=== PATIENT | female | born 1965 | race Caucasian/White ===

== ENCOUNTER 2016-05-04 13:46 | Emergency (ER) | payer OTHER ==
--- NOTE | 2016-05-04 14:34 | UCPHY ---
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 The dairy science teacher was concerned that she might have shingles and referred her to our clinic for further evaluation. Patient describes rash bilateral upper chest and neck that is oriented around hair follicles with small papules 10 be itchy occasional trace amount of purulent drainage from some of them. She also reports having had a left-sided hemicranial headache over the past 3 or 4 days intermittently that has since resolved. Her rash symptoms are primarily on the right side of her chest and neck. ROS: No fevers or chills. No other constitutional symptoms. HEENT: No nasal congestion. Neuro: No confusion. No numbness tingling or focal weakness. No visual changes. 10 point ROS is otherwise negative Past Medical/Surgical History: Occasional similar headaches. Smoking Status: Never smoked Physical Exam: Physical exam: Vital signs are normal General: Patient is in no acute distress. HEENT: Is no external evidence of trauma on exam. Nose atraumatic. Oropharynx: No dental trauma or malocclusion. No intraoral lacerations. Eyes: Pupils are equal and reactive to light. Extraocular motions are intact. Neck: Supple Lungs: No respiratory distress Cardiac: Brisk capillary refill intact throughout Skin: Patient has small erythematous papules or in her follicles to the right upper chest in lateral neck more than left. She has a pressure. No petechia or purpura. No vesicular lesions. No dermatomal distribution to her rash. There is no rash or vesicular lesions on her head. Neuro: GCS of 15. Cranial nerves II through XII intact. 3 out of 3 five- minute memory is intact. Cerebellar exam is normal as judged by symmetric rapid hand movements bilaterally. No pronator drift. No sensory or motor deficits are appreciated. Differential diagnosis: Tension headache or migraine headache-resolved, folliculitis, dermatitis Constitutional: Initial Vital Signs Temperature (C) 36.6 C 05/04/16 14:10 Heart Rate 93 05/04/16 14:10 Respiratory Rate 16 05/04/16 14:10 Blood Pressure 135/67 H 05/04/16 14:10 O2 Sat (%) 95 05/04/16 14:10 O2 Delivery Mode Room Air Allergies/Adverse Reactions: diphenhydramine HCl [From Benadryl] Allergy (Intermediate, Verified 05/04/16 14: 16) NAUSEA Sulfa (Sulfonamide Antibiotics) Allergy (Intermediate, Verified 05/04/16 14:16) Rash mesalamine [From Asacol] Allergy (Verified 05/04/16 14:16) Home Medications: Medication Instructions Recorded Methimazole [Tapazole 5MG (RX)] 2.5 mg PO 12/15/11 Cephalexin [Keflex (*)] 500 mg PO TID #21 cap 05/04/16 MDM/Departure - [facility] ED Course/Re-evaluation: I did not feel this patient has shingles given lack of dermatomal distribution and other inconsistencies. I counseled her regarding this. We will treat her for folliculitis to cover staph. - Depart Disposition: Home, Routine, Self-Care Clinical Impression: Folliculitis Condition: Good Instructions: Folliculitis (ED) Additional Instructions: Diagnosis: Folliculitis 2. Headache Plan: Keflex antibiotic Tylenol for headache if needed Follow up with Dr. Thornton-log cutter for any ongoing symptoms despite treatment plan Return for any significant worsening despite the treatment plan Prescriptions: Cephalexin [Keflex (*)] 500 mg PO TID #21 cap Referrals: Johana Clark MD [Primary Care Provider] - As per Instructions - PQRS PQRS Measurement: NA
[2016-05-04 14:37] VITALS: BP 135/67; PULSE 93; RESP 16; TEMP 97.9; O2SAT 95
== END 2016-05-04 15:00 | disposition home or self-care (01) ==
LOC: CED 13:46
DX: L73.9 Follicular disorder, unspecified (principal); R51 Headache
CPT/HCPCS: G0463-PO

== ENCOUNTER → 2016-06-04 | Outpatient (CLI) | payer OTHER | LOC: BRMIMAGING 08:32 | PROVIDERS: ATTEND Internal Medicine Endocrinology, Diabetes & Metabolism | DX: Z13.820 Encounter for screening for osteoporosis (principal); M85.80 Other specified disorders of bone density and structure, unspecified site; E21.3 Hyperparathyroidism, unspecified; E03.9 Hypothyroidism, unspecified; M45.9 Ankylosing spondylitis of unspecified sites in spine ==

== ENCOUNTER → 2016-06-11 | Outpatient (CLI) | payer OTHER | LOC: BRMIMAGING 11:08 | DX: Z12.31 Encounter for screening mammogram for malignant neoplasm of breast (principal); Z80.3 Family history of malignant neoplasm of breast | CPT/HCPCS: G0202 ==

== ENCOUNTER → 2017-10-07 | Outpatient (CLI) | payer OTHER | LOC: CIMAGING 08:03 | PROVIDERS: ATTEND Urology | DX: N20.0 Calculus of kidney (principal); M45.9 Ankylosing spondylitis of unspecified sites in spine | CPT/HCPCS: 74176-PO ==

== ENCOUNTER → 2017-12-14 | Outpatient (CLI) | payer OTHER | LOC: CIMAGING 16:04 | PROVIDERS: ATTEND Family Medicine | DX: R06.02 Shortness of breath (principal); M45.4 Ankylosing spondylitis of thoracic region; M45.6 Ankylosing spondylitis lumbar region | CPT/HCPCS: 71046-PO ==

== ENCOUNTER 2018-01-13 12:49 | Observation (INO) | payer OTHER ==
[2018-01-13] MEDS ORDERED: LIDOCAINE 1% 2 ML INJ ID PRN (14:50)
[2018-01-13] MEDS ORDERED: LR 1,000 ML IV ONE (14:50)
[2018-01-13] MEDS: fentaNYL 100 MCG/2 ML INJ IVP PRN ×3 (15:10→16:03)
--- NOTE | 2018-01-13 15:35 | PDANEPAE ---
ANE Past Medical History - Cardiovascular History Hx Hypertension: No Hx Arrhythmias: No Hx Chest Pain: No Hx Coronary Artery / Peripheral Vascular Disease: No Hx CHF / Valvular Disease: No Hx Palpitations: No - Pulmonary History Hx COPD: No Hx Asthma/Reactive Airway Disease: Yes Hx Recent Upper Respiratory Infection: No Hx Oxygen in Use at Home: No Hx Sleep Apnea: No - Endocrine History Hx Diabetes: No Hypothyroid: No Hyperthyroid: Yes Obesity: severe ANE Review of Systems Review of Systems: ANE Patient History - Allergies Allergies/Adverse Reactions: diphenhydramine HCl [From Benadryl] Allergy (Intermediate, Verified 01/13/18 14: 49) Hives Sulfa (Sulfonamide Antibiotics) Allergy (Intermediate, Verified 01/13/18 14:49) Hives mesalamine [From Asacol] Allergy (Verified 01/13/18 14:49) Vomiting - Home Medications Home Medications: Methimazole [Tapazole 5MG (RX)] 2.5 mg PO 12/15/11 [Last Taken Unknown] Proair Hfa 01/13/18 [Last Taken 3 Weeks Ago ~12/23/17] - NPO status NPO Since - Liquids (Date): 01/13/18 NPO Since - Liquids (Time): 12:00 NPO Since - Solids (Date): 01/13/18 NPO Since - Solids (Time): 10:00 - Smoking Hx Smoking Status: Never smoked ANE Labs/Vital Signs - Vital Signs Blood Pressure: 139/76 Heart Rate: 100 Respiratory Rate: 20 O2 Sat (%): 96 Height: 158.75 cm Weight: 108.862 kg ANE Physical Exam - Airway Neck exam: decreased ROM Mallampati Score: Class 1 Mouth exam: normal dental/mouth exam - Pulmonary Pulmonary: no respiratory distress - Cardiovascular Cardiovascular: regular rate and rhythym - ASA Status ASA Status: III ANE Anesthesia Plan Anesthesia Plan: general endotracheal anesthesia
--- NOTE | 2018-01-13 15:47 | PDHPUP ---
History & Physical Update H&P update statement: This history and physical update is based on an assessment of the patient which was completed after admission or registration (within 24 hours), but prior to the surgery/procedure. H&P update: H&P reviewed & patient examined, changes noted (she has left flank pain today and desires tx of her stone today)
[2018-01-13] MEDS ORDERED: ceFAZolin 2 GM/DEXTROSE 100 ML IV ONE (15:48)
[2018-01-13] MEDS ORDERED: OPIUM/BELLADONNA ALKALO SUPP PR ONE (16:00)
[2018-01-13] MEDS ORDERED: LR 500 ML IV PRN (17:00)
[2018-01-13] MEDS ORDERED: fentaNYL 100 MCG/2 ML INJ IVP PRN (17:00)
[2018-01-13] MEDS ORDERED: NALOXONE HCL 0.4 MG/ML INJ IVP PRN (17:00)
[2018-01-13] MEDS ORDERED: ONDANSETRON 4 MG/2 ML VIAL IVP PRN ×2 (17:00→20:24)
--- NOTE | 2018-01-13 18:56 | POSTOPPROG ---
Post Op Note Date of Operation: 01/13/18 Surgeon: iCci Aguila Anesthesia: GET(General Endotracheal) Pre-op Diagnosis: left renal stone, pain Post-op Diagnosis: small bladder mass, same Indication: left renal stones and pain Procedure: cysto, LURS, laser, stent, RGP, TURBT Findings: small bladder mass <0.5mm near right UO. Urethral polyps,Stone left kidney. Inf/Abcess present in the surg proc area at time of surgery?: No EBL: Minimal Complications: none, pt tolerated all well Drains: Other (mcmanus) Specimen(s): Stone, bladder tumor
[2018-01-13] MEDS ORDERED: OXYCODONE/APAP 5/325 TAB PO PRN (20:24)
[2018-01-13] MEDS ORDERED: NS 1,000 ML IV SCH (20:30)
[2018-01-13] MEDS ORDERED: ACETAMINOPHEN 500 MG TAB ONE (22:18)
[2018-01-13] MEDS: ACETAMINOPHEN 500 MG TAB PO PRN (22:20)
[2018-01-13] MEDS: CEPHALEXIN 500 MG CAP PO SCH (23:54)
[2018-01-14] MEDS: SENNOSIDES/DOCUSATE SODIUM TAB PO SCH ×2 (00:10→12:39)
[2018-01-14] MEDS: CEPHALEXIN 500 MG CAP PO SCH (06:32)
--- NOTE | 2018-01-14 07:32 | GOP ---
DATE OF OPERATION: 01/13/2018 SURGEON: Cici Aguila MD ANESTHESIA: General. PREOPERATIVE DIAGNOSIS: Left renal stone and pain. POSTOPERATIVE DIAGNOSIS: Small bladder mass, left renal stone and pain, frondular urethral polyps. PROCEDURE PERFORMED: Cystoscopy, left ureteroscopy, laser lithotripsy, basket extraction of stone, stent, retrograde pyelogram, intraoperative fluoroscopy, and transverse resection of bladder tumor. Transurethral resection of bladder tumor as well as removal of urethral polyp. FINDINGS: A small bladder tumor less than 0.5 mm midline to the right ureteral orifice. There were frondular urethral polyps that bled easily. There were stones in the left kidney. SPECIMENS: Bladder tumor as well as left renal stones. ESTIMATED BLOOD LOSS: Minimal. INDICATIONS: Left renal stone and pain. DESCRIPTION OF PROCEDURE: The patient was taken back to the cystoscopy suite, placed on the cystoscopy table in supine position. General anesthesia induced without complication. Time-out performed and core measures satisfied including placement of a Meenu Hugger, SCDs and administration of 2 g Ancef antibiotic. She was brought to the end of the table and placed in dorsal lithotomy position. All pressure points padded. Genitalia draped and prepped in the standard surgical fashion with Betadine. A rigid cystoscope easily cannulated the urethral meatus and was advanced atraumatically in the bladder. I noted several urethral polyps and they were very friable and bled very easily. I did crawley-cystoscopy and noted a abnormal bladder mass just medial to the right ureteral orifice. It did not involve the ureteral orifice. She did not have trigonitis or squamous metaplasia around this or even in the trigone. This was an isolated little tumor, but did not look papillary, it actually looked benign , but I made the decision at that time to do a transurethral resection of it just to be safe and know the pathology. Otherwise the remainder of the bladder looked healthy with no lesions, cellules, trabeculations, or other abnormalities. I focused attention just on the stone initially, so I did a retrograde pyelogram on the left collecting system with a 5-Latvian open-ended catheter and there was a filling defect in the renal pelvis indicating the stone. I then advanced 2 Glidewires with fluoroscopic and cystoscopic guidance. I then advanced a 12 and 14-Latvian ureteral access sheath over 1 of the wires and advanced easily without any friction and advanced up to the left ureteropelvic junction. I then advanced a flexible ureteroscope into the sheath up to the level of the stone that was in the kidney and then I lasered it with a 273 micron laser into dust and basketable fragments. I did find a 2nd stone in the lower pole along with some smaller other stones and this other 2nd larger stone did need to be lasered. I moved out of the lower pole into the upper pole and then I did laser it into basketable fragments and then dust. I did use a Zero tip Nitinol basket to remove all of the basketable stones and I felt at the end of the case she was clear of stones. I did a retrograde pyelogram and then removed the sheath and the scope together examining the wall of the ureter and the wall of the ureter looked healthy without any injury or edema. I then placed a 6-Latvian multivariable stent over the wire with fluoroscopic guidance and there was a curl in the left kidney and a nice curl in the bladder. Next, I directed attention on removing the small bladder mass. I assembled the HistogenIS resectoscope. The frondular polyps at her urethra bled quite a bit, so I decided also to just remove those as well but they were very small and nothing available to take pathology on that. I did use the loop to resect the small bladder mass in its entirety. I extracted that piece of tissue and sent that to pathology in formalin. I cauterized the bed of the area of the little mass that I removed and hemostasis was excellent. At this point, I felt the procedure was considered complete. I removed the scope, placed a Dee catheter due to the bleeding tendency of those urethral polyps. I placed a 16-Latvian Dee catheter without difficulty. I then considered the procedure complete. I did do lidocaine jelly per urethra for the Dee as well as placed a belladonna and opium suppository. The procedure was considered complete. She was awoken from anesthesia and transferred to PACU in good condition. COMPLICATIONS: None. The patient tolerated the procedure well. INDICATION FOR PROCEDURE: Mrs. Leyva has been having left-sided discomfort and a CT scan demonstrated a left renal pelvis stone. She desired treatment of the stone. The rational, risks and benefits of the procedure were discussed in detail including bleeding, infection, pain, injury to the urethra or the bladder or the ureter, need for subsequent procedures, need for just placing a stent and she understood these risks and agreed to proceed. /[id number]/MODL MTDD
[2018-01-14] MEDS ORDERED: ENOXAPARIN 40 MG/0.4 ML SYR SC SCH (09:00)
--- NOTE | 2018-01-14 09:57 | SOAPPROG ---
SOAP Progress Note Assessment/Plan: Assessment: s/p laser lithotripsy and bladder tumor removal. Mcmanus out. Skin boil left lower abdomen, - noted prior to OR procedure yesterdady. Plan: DC home after she voids on her own. Keflex x 5 days for skin boil. Follow u p already scheduled for next week for stent removal. 01/14/18 09:55 01/14/18 09:57 Subjective: NAEON, mcmanus out, doing well. needs to void. No right flank pain now. Objective: Vital Signs Temp Pulse Resp BP Pulse Ox 36.4 C 71 18 107/64 95 01/14/18 08:16 01/14/18 08:16 01/14/18 08:16 01/14/18 08:16 01/14/18 08:16 01/13/18 01/14/18 01/15/18 05:59 05:59 05:59 Intake Total 3359 Output Total 2370 Balance 989 Gen NAD CV regular Lungs Normal effort Abd left lower abdomen boil, red. Ext warm ICD10 Worksheet Patient Problems: Problems Problem Status Onset Folliculitis Acute
--- NOTE | 2018-01-14 09:58 | ASMTLACE ---
LACE Length of stay for Answers: Less than 1 day current admission Acuity / Level of Answers: No Care: Did the patient have an inpatient admission? 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
[2018-01-14 11:15] VITALS: BP 142/79
--- NOTE | 2018-01-14 12:09 | ASDISCHSUM ---
Discharge Information Plan Status:Home with No Needs Medically Cleared to Leave:01/14/2018 Discharge Date:01/14/2018 CM D/C Disposition:Home, Routine, Self-Care ADT D/C Disposition: Projected Discharge Date:01/14/2018 Transportation at D/C:Family Discharge Delay Reason: Follow-Up Date:01/14/2018 Discharge Slot: Final Diagnosis: Placement Information Patient Contact Information Contact Name:LEONARDO Relationship: Address:[address] [place] [address] Work Phone: City:[place] Alternate Phone: State/Zip Code:[place] [address] Email: Financial Information Financial Class:HMO and PPO Plans Primary Plan Desc:[employer] PPO POS HMO SIG ADM Primary Plan Number:[id number] Secondary Plan Desc: Secondary Plan Number: Assessment Information LACE LACE Length of stay for Answers: Less than 1 day current admission Acuity / Level of Answers: No Care: Did the patient have an inpatient admission? 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 Answers: Yes Patient to Obtain Answers: via Family Medications Transportation Arranged Answers: Family/Friends Discharge Comments Notes: Pt is s/p cystoscopy, ureteroscopy, and tumor resection for renal stones and bladder tumor. She is discharging home with her today and no CM needs. Date Signed: 01/14/2018 12:08 PM Electronically Signed By:RICK Villafuerte Intervention Information
[2018-01-14] MEDS: ACETAMINOPHEN 500 MG TAB PO PRN (12:39)
== END 2018-01-14 13:39 | disposition home or self-care (01) ==
LOC: FSGY 12:49 → F3E 20:09 → F1N 22:59
PROVIDERS: ADMIT Urology; ATTEND Urology
DX: N32.89 Other specified disorders of bladder (principal); N30.80 Other cystitis without hematuria; N20.0 Calculus of kidney; N36.2 Urethral caruncle
CPT/HCPCS: 50080; 51530; C1758; C1769; C1894; G0378; 82365-90; C2625; J3010

== ENCOUNTER → 2018-01-13 | Outpatient (CLI) | payer OTHER | LOC: CIMAGING 07:18 | PROVIDERS: ATTEND Urology | DX: N20.0 Calculus of kidney (principal) | CPT/HCPCS: 74018-PO; 76770-PO ==

== ENCOUNTER → 2018-02-16 | Outpatient (CLI) | payer OTHER | LOC: CIMAGING 12:45 | PROVIDERS: ATTEND Internal Medicine Endocrinology, Diabetes & Metabolism | DX: E04.9 Nontoxic goiter, unspecified (principal) | CPT/HCPCS: 76536-PO ==

== ENCOUNTER → 2018-02-21 | Outpatient (CLI) | payer OTHER | LOC: CIMAGING 10:23 | PROVIDERS: ATTEND Urology | DX: Z00.00 Encounter for general adult medical examination without abnormal findings (principal) | CPT/HCPCS: 76770-PO ==